=== PATIENT | female | born 2005 | race Two or more races ===

== ENCOUNTER → 2025-06-29 | Emergency (ER) | payer OTHER ==
[~2025-06-29] VITALS: Ht 162.6 cm; Wt 65.8 kg
[2025-06-29 17:41] VITALS: BP 113/81; O2SAT 99
== END | disposition home or self-care (01) ==
LOC: EMR PED 17:31 → ER 17:31 → EMR PED 19:22
DX: F41.8 Other specified anxiety disorders (principal)